=== PATIENT | female | born 1980 | race African-American/Black ===

== ENCOUNTER 2018-07-16 17:16 | Emergency (ER) | payer OTHER ==
[~2018-07-16] VITALS: Ht 160 cm; Wt 83.9 kg
[~2018-07-16 17:16] MED LIST: PREDNISONE 20 M20 M1 PO; VENTOLIN HFA 1818 GM INH; ZPAK PO
[2018-07-16] MEDS ORDERED: ROBAXIN 750 MG750 M1 PO (21:59)
[2018-07-16] MEDS ORDERED: NABUMETONE 750750 M1 PO (21:59)
[2018-07-16 22:11] VITALS: BP 116/70
== END 2018-07-16 22:12 | disposition home or self-care (01) ==
LOC: M.ERS 17:16
DX: S16.1XXA Strain of muscle, fascia and tendon at neck level, initial encounter (principal); S29.012A Strain of muscle and tendon of back wall of thorax, initial encounter; Z88.5 Allergy status to narcotic agent; V49.49XA Driver injured in collision with other motor vehicles in traffic accident, initial encounter; Y93.89 Activity, other specified; Y92.89 Other specified places as the place of occurrence of the external cause; Y99.8 Other external cause status

== ENCOUNTER 2019-07-11 10:16 | Emergency (ER) | payer OTHER ==
[~2019-07-11] VITALS: Ht 160 cm; Wt 83.9 kg
[~2019-07-11 10:16] MED LIST changes: +NABUMETONE 750750 M1 PO; +ROBAXIN 750 MG750 M1 PO
[2019-07-11] MEDS ORDERED: NORCO 5-325 TA1 EAC1 PO ×2 (11:13→11:23)
[2019-07-11 11:56] VITALS: BP 132/72
== END 2019-07-11 11:57 | disposition home or self-care (01) ==
LOC: M.ERS 10:16
DX: S92.351A Displaced fracture of fifth metatarsal bone, right foot, initial encounter for closed fracture (principal); Z88.5 Allergy status to narcotic agent; W18.39XA Other fall on same level, initial encounter; Y92.481 Parking lot as the place of occurrence of the external cause; Y93.89 Activity, other specified; Y99.8 Other external cause status